=== PATIENT | female | born 1940 | race Caucasian/White ===

== ENCOUNTER 2018-06-13 13:24 | Emergency (ER) | payer OTHER ==
[~2018-06-13] VITALS: Ht 167.6 cm; Wt 70.3 kg
[~2018-06-13 13:24] MED LIST: COZAAR50 MG PO; ECO81 PO; GLU5XL PO; JANUVIA100 M1 PO; LAC PO; LEVAQUIN250 MG PO; LEVOTHYROXIN0.125 M2 PO; LIPI10 PO; LOP600 PO; METFORMIN HCL1000 MG PO; RANITIDINE HCL150 M1 PO; RITE AID FISH1000 MG PO; TORADOL10 MG PO; VITAMIN B121000 MCG PO; VITAMIN D32000 I2 PO
[2018-06-13 13:33] VITALS: Ht 167.6 cm; Wt 70.3 kg
[2018-06-13 17:09] VITALS: BP 129/65
== END 2018-06-13 17:09 | disposition home or self-care (01) ==
LOC: ED 13:24
DX: S42.212A Unspecified displaced fracture of surgical neck of left humerus, initial encounter for closed fracture (principal); S20.212A Contusion of left front wall of thorax, initial encounter; S50.312A Abrasion of left elbow, initial encounter; I10 Essential (primary) hypertension; E11.9 Type 2 diabetes mellitus without complications; F17.210 Nicotine dependence, cigarettes, uncomplicated; Z71.6 Tobacco abuse counseling; W17.89XA Other fall from one level to another, initial encounter; Y93.89 Activity, other specified; Y92.89 Other specified places as the place of occurrence of the external cause; Y99.8 Other external cause status
CPT/HCPCS: 99406; J2270; J2405